=== PATIENT | male | born 1990 | race African-American/Black ===

== ENCOUNTER 2017-08-12 17:33 | Emergency (ER) | payer SELFPAY ==
[2017-08-12 17:43] VITALS: BP 127/66; BMI 25.0
--- NOTE | 2017-08-12 18:53 | DR.GENAD ---
HPI - PCP Primary Care Physician: none - HPI Comment HPI Comment: HISTORY BELOW. - Complaint/Symptoms Chief Complaint Doctors Comments: PATIENT HAVE INCREASING HEADACHE, ABDOMINAL PAIN, BACK PAIN AND HEADACHE. SYMTOMS PRESENT PREVIOUSLY BUT WORSE PAST ONE WEEK. HEADACHE WITH DIZZINESS TODAY. NO EAR PAIN. NO VOMITING OR FEVER. Chief Complaint:: Pt states,"my head always hurts. My stomach is always queasy. My chest always feels tight. I have really bad acid reflux. My body always feels "light". My eyes are always hurts." All symptoms have persisted for years. Self Treatment fo Chief Complaint: took ibuprofen with no relief - Nurses notes reviewed Nurses Notes Review: Yes - Source History Provided: Patient - Mode of Arrival Mode of Arrival: Ambulatory - Timing Onset of Chief Complaint: 08/12/17 Came on: Gradually - Duration Duration: Constant Duration: Days - Severity Severity: Moderate PMH - PMH Past Medical History: Yes Past Medical History: Anxiety, Headaches Past Surgical History: No - Family History History of Family Medical Conditions: Yes Family Medical History: Diabetes Mellitus, Hypertension - Social History Does patient currently use any type of tobacco product: No Have you used tobacco products in the last 12 months: No Type of Tobacco Use: None Does any household member use tobacco: No Alcohol Use: None Do you use any recreational Drugs:: No (hx ectasy (5years ago)) Lives With: Family Lives Where: Home - infectious screening In the last 2 months have you had wt loss of >10#?: NO Have you had fever, night sweats or hemotysis?: No Have you traveled outside the country in the last 6 months?: No Isolation: Standard ROS - Review of Systems Constitutional: No Symptoms Reported Eyes: No Symptoms Reported ENTM: No Symptoms Reported Respiratoy: Non-Productive Cough. negative: Short of Breath, Wheezing, Hemoptysis Cardiovascular: Chest Pain. negative: Edema, Palpitations, Syncope Gastrointestinal/Abdominal: Abdominal Pain, Nausea. negative: Constipation, Diarrhea, Vomiting Genitourinary: negative: Discharge, Dysuria, Frequency, Hematuria, Pain, Bleeding Neurological: No Symptoms Reported, Headache, Numbness, Dizziness Musculoskeletal: Back Pain, Muscle Pain, Back Integumentary: No Symptoms Reported Hematologic/Lymphatic: No Symptoms Reported Endocrine: No Symptoms Reported All Other Systems: Reviewed and Negative PE - Vital Signs Vitals: Temperature 97.7 F Pulse Rate 88 Respiratory Rate 20 Blood Pressure 127/66 O2 Sat by Pulse Oximetry 98 - General Limitations: No Limitations General Appearance: Alert - Head Head Exam: Normal Inspection - Eyes Eye exam: Normal Appearance - ENT ENT Exam: Normal Oropharynx External Ear Exam: Normal External Inspection TM/Canal Exam: Bilateral Normal Nose Exam: Normal Nose Exam Mouth Exam: Normal Inspection Throat Exam: Normal Inspection - Neck Neck Exam: Normal Inspection - Chest Chest Inspection: Symmetric Chest Wall Rise - Respiratory Respiratory Exam: Normal Lung Sounds Bilat Respiratory Exam: Bilateral Clear to Auscultation - Cardiovascular Cardiovascular Exam: Regular Rate, Normal Rhythm, Normal Heart Sounds - Abdominal Exam Abdominal Exam: Normal Bowel Sounds, Soft. negative: Tenderness - Extremities Extremities Exam: Normal Inspection - Back Back Exam: Normal Inspection - Neurologic Neurological Exam: Alert, Oriented X3 - Psychiatric Psychiatric Exam: Normal Affect, Normal Mood - Skin Skin Exam: Normal Color MDM - Differential Diagnosis Differential Diagnosis: CHEST PAIN, ABDOMIONAL PAIN, BACK PAIN, HEADACHE Course - Treatment Treatment: SEE ORDERS. - Education/Counseling Education/Counseling: Patient, Education Educated On: Diagnosis, Needs for Follow Up ROR - Labs Reviewed Laboratory Results Reviewed?: Yes Result Diagrams: 08/12/17 19:05 08/12/17 19:05 Laboratory: WBC 5.0 X10^3/uL (3.6-10.0) 08/12/17 19:05 RBC 5.66 X10^6/uL (4.7-6.0) 08/12/17 19:05 Hgb 15.3 g/dL (13.5-18.0) 08/12/17 19:05 Hct 45.9 % (42.0-54.0) 08/12/17 19:05 MCV 81.0 fL (80.0-100.0) 08/12/17 19:05 MCH 27.0 pg (27.0-34.0) 08/12/17 19:05 MCHC 33.4 g/dL (33.0-35.0) 08/12/17 19:05 RDW 13.6 % (11.6-16.5) 08/12/17 19:05 Plt Count 297 X10^3/uL (150.0-450.0) 08/12/17 19:05 MPV 8.0 fL (7.4-11.0) 08/12/17 19:05 Neut % 56.3 % (42.0-75.0) 08/12/17 19:05 Lymph % 30.9 % (21.0-51.0) 08/12/17 19:05 [place] % 11.6 % (0.0-13.0) 08/12/17 19:05 Eos % 0.8 % (0.9-2.9) L 08/12/17 19:05 Baso % 0.4 % (0.2-1.0) 08/12/17 19:05 Neut # 2.8 x10^3/uL (2.2-4.8) 08/12/17 19:05 Lymph # 1.6 X10^3/uL (1.3-2.9) 08/12/17 19:05 [place] # 0.6 x10^3/uL (0.3-0.8) 08/12/17 19:05 Eos # 0.0 x10^3/uL (0.0-0.2) 08/12/17 19:05 Baso # 0.0 X10^3/uL (0.0-0.1) 08/12/17 19:05 Absolute Nucleated RBC 0.0 /100WBC 08/12/17 19:05 Sodium 137 mmol/L (136-145) 08/12/17 19:05 Corrected Sodium TNP 08/12/17 19:05 Potassium 4.3 mmol/L (3.5-5.1) 08/12/17 19:05 Chloride 103 mmol/L (98-107) 08/12/17 19:05 Carbon Dioxide 29.2 mmol/L (21-32) 08/12/17 19:05 BUN 16 mg/dL (7-18) 08/12/17 19:05 Creatinine 0.97 mg/dL (0.70-1.30) 08/12/17 19:05 Est GFR (MDRD) Af Amer > 60 (>60) 08/12/17 19:05 Est GFR (MDRD) Non-Af > 60 (>60) 08/12/17 19:05 Glucose 81 mg/dL (65-99) 08/12/17 19:05 Calcium 9.4 mg/dL (8.5-10.1) 08/12/17 19:05 Corrected Calcium TNP 08/12/17 19:05 Total Bilirubin 0.30 mg/dL (0.2-1.0) 08/12/17 19:05 AST 16 Units/L (15-37) 08/12/17 19:05 ALT 22 Units/L (12-78) 08/12/17 19:05 Alkaline Phosphatase 59 Units/L (46-116) 08/12/17 19:05 Creatine Kinase 114 Units/L (39-308) 08/12/17 19:05 CK-MB (CK-2) 1.1 ng/mL (0-4.0) 08/12/17 19:05 CK/CKMB % Calc 1.0 % (<4) 08/12/17 19:05 Troponin I < 0.02 ng/mL (0-1.5) 08/12/17 19:05 Total Protein 7.7 g/dL (6.4-8.2) 08/12/17 19:05 Albumin 4.1 g/dL (3.4-5.0) 08/12/17 19:05 Globulin 3.6 g/dL (2.5-4.5) 08/12/17 19:05 Albumin/Globulin Ratio 1.1 Ratio (1.1-2.1) 08/12/17 19:05 H. pylori IgG Antibody Negative (NEGATIVE) 08/12/17 19:05 - XRAY XRAY Interpreted by: Radiologist XRAY Findings: REPORT DISCUSS WITH PATIENT. - EKG Rhythm: NSR (EKG NOTED.) - Diagnosis Discharge Problem: Headache Qualifiers: Headache type: unspecified Headache chronicity pattern: acute headache Intractability: intractable Qualified Code(s): R51 - Headache Back pain Qualifiers: Back pain location: low back pain Chronicity: chronic Back pain laterality: bilateral Sciatica presence: without sciatica Qualified Code(s): M54.5 - Low back pain; G89.29 - Other chronic pain; G89.29 - Other chronic pain Chest pain Qualifiers: Chest pain type: precordial pain Qualified Code(s): R07.2 - Precordial pain Abdominal pain Qualifiers: Abdominal location: generalized Qualified Code(s): R10.84 - Generalized abdominal pain - Discharge Plan Disposition: HOME, SELF-CARE Condition: Stable Prescriptions: Ibuprofen [MOTRIN TAB 600 MG *] 600 mg PO TID PRN #20 tab PRN Reason: Pain/Inflammation Ranitidine HCl [ZANTAC TAB 150 MG *] 150 mg PO BID #60 tab - Follow ups/Referrals Follow ups/Referrals: [facility],None [Primary Care Provider] - 3 days - Instructions Instructions: Abdominal Pain, Adult, [id number], Chest Pain Observation Additional Instructions: return to ed if worse.
[2017-08-12 19:14] LABS: BASOPHILS % (AUTO) 0.4 % (0.2-1.0); EOSINOPHILS % (AUTO) 0.8 % (0.9-2.9); HEMATOCRIT 45.9 % (42.0-54.0); HEMOGLOBIN 15.3 g/dL (13.5-18.0); LYMPHOCYTES # (AUTO) 1.6 X10^3/uL (1.3-2.9); LYMPHOCYTES % (AUTO) 30.9 % (21.0-51.0); MEAN CORPUSCULAR HGB CONC 33.4 g/dL (33.0-35.0); MONOCYTES # (AUTO) 0.6 x10^3/uL (0.3-0.8); MONOCYTES % (AUTO) 11.6 % (0.0-13.0); NEUTROPHILS # (AUTO) 2.8 x10^3/uL (2.2-4.8); NEUTROPHILS % (AUTO) 56.3 % (42.0-75.0); PLATELET COUNT 297 X10^3/uL (150.0-450.0); RED BLOOD COUNT 5.66 X10^6/uL (4.7-6.0); RED CELL DISTRIBUTION WIDTH 13.6 % (11.6-16.5)
--- NOTE | 2017-08-12 19:23 | CT ---
CT HEAD WITHOUT CONTRAST CLINICAL HISTORY: 27-year-old male with chronic headache. COMPARISON: None. TECHNIQUE: Multiple axial CT images were obtained from the skull base to the cranial vertex without t he administration of contrast. FINDINGS: No evidence of abnormal intra- or extra axial fluid collections, midline shift, or mass eff ect. Vega white differentiation is maintained. The ventricular system is normal in size and morpholog y. The basal cisterns are normal in appearance. The imaged paranasal sinuses, mastoid air cells, and tympanic cavities are clear. IMPRESSION: No acute intracranial process, if clinical concern persists, consider MRI/MRA brain. Reported By:
[2017-08-12 19:34] LABS: BLOOD UREA NITROGEN 16 mg/dL (7-18); CALCIUM 9.4 mg/dL (8.5-10.1); CARBON DIOXIDE 29.2 mmol/L (21-32); CHLORIDE 103 mmol/L (98-107); CREATININE 0.97 mg/dL (0.70-1.30); SODIUM 137 mmol/L (136-145); TROPONIN I < 0.02 ng/mL (0-1.5); eGFR BLACK RACES > 60 (>60); eGFR NON BLACK RACES > 60 (>60)
[2017-08-12 19:38] LABS: ALANINE AMINOTRANSFERASE 22 Units/L (12-78); ALBUMIN 4.1 g/dL (3.4-5.0); ALKALINE PHOSPHATASE 59 Units/L (46-116); ASPARTATE AMINO TRANSFERASE 16 Units/L (15-37); CREATINE KINASE 114 Units/L (39-308); CREATINE KINASE MB 1.1 ng/mL (0-4.0); TOTAL PROTEIN 7.7 g/dL (6.4-8.2)
--- NOTE | 2017-08-12 19:57 | RAD ---
HISTORY: 27-year-old male with chronic chest tightness. Study: Frontal view of the chest. Comparison: None. Findings: The trachea is midline. The cardiac silhouette is unremarkable. The lungs are clear without focal c onsolidation, effusion or pneumothorax. Soft tissues are unremarkable. Osseous structures are unrema rkable. IMPRESSION: 1. No acute cardiopulmonary disease. Reported By:
== END 2017-08-12 21:17 | disposition home or self-care (01) ==
LOC: ER 17:59
DX: R51 Headache (principal); M54.5 Low back pain; G89.29 Other chronic pain; R07.2 Precordial pain; R10.84 Generalized abdominal pain
CPT/HCPCS: 36415; 70450; 71045; 80053; 82550; 82553; 84484; 85025; 86677; 93005; 93010; 99283